=== PATIENT | female | born 1955 | race Caucasian/White ===

== ENCOUNTER → 2016-03-26 | Outpatient (CLI) | payer OTHER ==
[~2016-03-26] MED LIST: ADVIL200 M1 PO; ALAGESIC CAPSU1 EACH PO; AMBIEN10 M1 PO; AMBIEN10 MG PO; AMITRIPTYLINE H10 MG PO; BENZONATATE100 MG PO; CLONAZEPAM0.5 MG PO; CLONAZEPAM1 MG PO; CRESTOR40 MG PO; Cipro PO; ERGOCALCIF50000 UNIT PO; Ecotrin PO; FENOFIBRATE145 M1 PO; FISH OIL 1,2001 EAC4 PO; FLUOXETINE HCL40 MG PO; HYDROCODON-ACE1 EAC9 PO; KEFLEX500 MG PO; KLONOPIN0.5 M1 PO; KLONOPIN1 MG PO; KLONOPIN2 MG PO; LEVOFLOXACIN750 MG PO; LIDODERM 5% P1 PATCH TD; LYRICA150 MG PO; MACROBID100 MG PO; MELOXICAM7.5 MG PO; NAPROXEN500 MG PO; PERCOCET 5/31 TABLET PO; PREDNISONE20 MG PO; PROTONIX40 MG PO; PROZAC40 MG PO; QUETIAPINE FUM200 MG PO; SEROQUEL100 MG PO; SEROQUEL200 MG PO; SEROQUEL50 MG PO; TRICOR145 MG PO; VICODIN,LORT1 TABLET PO; VITAMIN D31000 UNI2 PO; VITAMIN D35000 UNIT PO; WELLBUTRIN XL150 MG PO; WELLBUTRIN100 M1 PO; ZYBAN 150 MG T150 MG PO
== END | disposition home or self-care (01) ==
LOC: CDC 13:06
DX: R94.31 Abnormal electrocardiogram [ECG] [EKG] (principal); M48.06 Spinal stenosis, lumbar region; G96.8 Other specified disorders of central nervous system; M43.10 Spondylolisthesis, site unspecified
CPT/HCPCS: 93000

== ENCOUNTER 2016-04-09 08:18 | Inpatient (IN) | payer OTHER ==
[~2016-04-09] VITALS: Ht 162.6 cm; Wt 86.4 kg
[~2016-04-09 08:18] MED LIST changes: +CIPRO500 MG PO; +CRESTOR20 MG PO; +TRAVATAN Z5 ML BOTH EYES
[2016-04-09 08:55] VITALS: BP 136/70
[2016-04-09 17:50] VITALS: BP 137/87
[2016-04-09 19:53] VITALS: BP 148/66
[2016-04-10 00:29] VITALS: BP 135/65
[2016-04-10 04:15] VITALS: BP 118/58
[2016-04-10 08:30] VITALS: BP 119/56
[2016-04-10 11:30] VITALS: BP 110/77; BP 117/55; BP 122/81
[2016-04-10] MEDS ORDERED: CYCLOBENZAPRINE10 MG PO (13:34)
[2016-04-10] MEDS ORDERED: FENTANYL1 EAC5 TD (13:34)
[2016-04-10] MEDS ORDERED: HYDROCODON-ACE1 EAC9 PO (13:34)
[2016-04-10 16:20] VITALS: BP 105/59
== END 2016-04-10 18:31 | disposition home or self-care (01) | DRG 460 ==
LOC: 2SOUTH → 3EAST 17:38
PROC: 0SG0071 Fusion of Lumbar Vertebral Joint with Autologous Tissue Substitute, Posterior Approach, Posterior Column, Open Approach (ICD-10-PCS; principal; 2016-04-09)
DX: M43.16 Spondylolisthesis, lumbar region (principal); G95.89 Other specified diseases of spinal cord; M48.00 Spinal stenosis, site unspecified; R32 Unspecified urinary incontinence; R53.1 Weakness; E78.5 Hyperlipidemia, unspecified; F41.9 Anxiety disorder, unspecified; F32.9 Major depressive disorder, single episode, unspecified; F43.10 Post-traumatic stress disorder, unspecified; M79.7 Fibromyalgia
CPT/HCPCS: 72100; 76000; 94799; J0330; J0690; J1100; J1170; J1580; J2250; J2405; J2710; J2930; J3010; J3370; J3480; P9045; S0020

== ENCOUNTER 2016-06-30 17:55 | Emergency (ER) | payer OTHER ==
[~2016-06-30] VITALS: Ht 162.6 cm; Wt 90.4 kg
[~2016-06-30 17:55] MED LIST changes: +CYCLOBENZAPRINE10 MG PO; +FENTANYL1 EAC5 TD
[2016-06-30] MEDS ORDERED: NAPROSYN500 MG PO (19:23)
[2016-06-30] MEDS ORDERED: KEFLEX500 MG PO (19:23)
[2016-06-30 19:39] VITALS: BP 141/96
== END 2016-06-30 19:41 | disposition home or self-care (01) ==
LOC: EME 17:55
DX: S61.211A Laceration without foreign body of left index finger without damage to nail, initial encounter (principal); S62.611B Displaced fracture of proximal phalanx of left index finger, initial encounter for open fracture; W29.3XXA Contact with powered garden and outdoor hand tools and machinery, initial encounter; Y93.H2 Activity, gardening and landscaping; Z23 Encounter for immunization; Z88.6 Allergy status to analgesic agent
CPT/HCPCS: 73130; 99281; 99283; S0020

== ENCOUNTER 2016-08-05 18:21 | Observation (INO) | payer OTHER ==
[~2016-08-05] VITALS: Ht 162.6 cm; Wt 92.3 kg
[~2016-08-05 18:21] MED LIST changes: +NAPROSYN500 MG PO
[2016-08-05 19:48] LABS: HEMATOCRIT 38.6 % (36.0-46.0); MCH 27.1 PG (29.0-34.0); MCHC 32.4 G/DL (30.0-36.0); MCV 83.7 FL (83-99); MEAN PLAT.VOLUME 10.4 uM^3 (9.5-12.4); PLATELET COUNT 308 K/uL (156-360); RBC DIS.WIDTH-CV 14.4 % (11.8-14.6); RBC DIS.WIDTH-SD 43.8 % (39-53); RED BLOOD COUNT 4.61 M/uL (3.80-5.20); WHITE BLOOD COUNT 5.9 K/uL (4.1-10.2)
[2016-08-05 20:00] LABS: CHLORIDE 107 mEq/L (99-109); POTASSIUM 4.3 mEq/L (3.7-5.4); SODIUM 141 mEq/L (136-147)
[2016-08-05 20:01] LABS: GLUCOSE 105 mg/dL (70-99)
[2016-08-05 20:03] LABS: ANION GAP 10 MEQ/L (2-14)
[2016-08-05 20:05] LABS: GFR ESTIMATE (CALCULATED) 49 mL/min/
[2016-08-05 20:06] LABS: UREA NITROGEN (BUN) 21 mg/dL (9-23)
[2016-08-05] MEDS ORDERED: ADVIL,NUPRIN,M200 MG PO (22:16)
[2016-08-05] MEDS ORDERED: PROTONIX40 MG PO (22:17)
[2016-08-05] MEDS ORDERED: WELLBUTRIN XL150 MG PO (23:59)
[2016-08-06 01:23] VITALS: BP 123/65
[2016-08-06 01:38] LABS: ADD MIUA? YES; BILIRUBIN NEGATIVE; BLOOD NEGATIVE; COLOR YELLOW ((YELLOW)); GLUCOSE (STRIP) NEGATIVE; KETONES NEGATIVE; LEUKOCYTES MODERATE; NITRITE NEGATIVE; PROTEIN (STRIP) NEGATIVE; SPECIFIC GRAVITY 1.018 (1.000-1.030); UROBILINOGEN 0.2 MG/DL (0.2-1.0)
[2016-08-06 02:14] LABS: BACTERIA NONE SEEN /HPF; CALCIUM OXALATE CRYSTALS 4+ /HPF; EPITHELIAL CELLS RARE /HPF; MUCUS TRACE /LPF; RED BLOOD CELLS 0-5 /HPF (0-5); WHITE BLOOD CELLS 20-30 /HPF (0-5)
[2016-08-06 03:30] VITALS: BP 121/59
[2016-08-06 04:23] LABS: BARBITUATES QUANT VALUE 0 NG/ML; BENZODIAZEPINES, URINE SCREEN POSITIVE (200 ng/mL); MARIJUANA QUANT VALUE 0 NG/ML; PHENCYCLIDINE QUANT VALUE 0 NG/ML
[2016-08-06 07:02] LABS: Estimated Average Glucose 131 mg/dL (70-123); HEMOGLOBIN A1c (GLYCOHEMOGLOB) 6.2 % HGB (Below 5.7)
[2016-08-06 07:25] LABS: HDL CHOLESTEROL 26 MG/DL (Desirable>=50); NON-HDL CHOLESTEROL 146 mg/dL (Desirable<160); TOTAL CHOLESTEROL 172 mg/dL (Desirable<200); TRIGLYCERIDES 505 MG/DL (Normal: <150)
[2016-08-06 07:55] VITALS: BP 119/69
== END 2016-08-06 13:34 | disposition home or self-care (01) ==
LOC: EME 18:21 → RME 18:21 → 5WEST 23:10 → EDOF 23:10 → 5WEST 08-06 00:22
PROVIDERS: Hospitalist; Physician Assistant
DX: G43.109 Migraine with aura, not intractable, without status migrainosus (principal); G44.89 Other headache syndrome; R20.0 Anesthesia of skin; F41.9 Anxiety disorder, unspecified; F32.9 Major depressive disorder, single episode, unspecified; K21.9 Gastro-esophageal reflux disease without esophagitis; G89.4 Chronic pain syndrome; M79.7 Fibromyalgia; E78.5 Hyperlipidemia, unspecified; I10 Essential (primary) hypertension; N20.0 Calculus of kidney; Z79.891 Long term (current) use of opiate analgesic
CPT/HCPCS: 70450; 70551; 71020; 80048; 80061; 80306 90; 81003; 83036; 85027; 87651 90; 93005; 93880; 99281; 99285; G0378

== ENCOUNTER → 2016-11-29 | Outpatient (CLI) | payer OTHER ==
[~2016-11-29] VITALS: Ht 162.6 cm; Wt 87.1 kg
[~2016-11-29] MED LIST changes: +ADVIL,NUPRIN,M200 MG PO
== END | disposition home or self-care (01) ==
LOC: AMB 13:00
PROC: 0DJD8ZZ Inspection of Lower Intestinal Tract, Via Natural or Artificial Opening Endoscopic (ICD-10-PCS; principal; 2016-11-29)
DX: Z12.11 Encounter for screening for malignant neoplasm of colon (principal); K21.9 Gastro-esophageal reflux disease without esophagitis; F41.1 Generalized anxiety disorder; E66.9 Obesity, unspecified; F32.9 Major depressive disorder, single episode, unspecified; E78.5 Hyperlipidemia, unspecified; Z68.32 Body mass index [BMI] 32.0-32.9, adult

== ENCOUNTER 2017-07-05 16:10 | Emergency (ER) | payer OTHER ==
[~2017-07-05] VITALS: Ht 162.6 cm; Wt 86.3 kg
[2017-07-05] MEDS ORDERED: NAPROSYN500 MG PO (17:50)
[2017-07-05 18:08] VITALS: BP 114/61
== END 2017-07-05 18:09 | disposition home or self-care (01) ==
LOC: EME 16:10
DX: S93.402A Sprain of unspecified ligament of left ankle, initial encounter (principal); X50.1XXA Overexertion from prolonged static or awkward postures, initial encounter; Y93.01 Activity, walking, marching and hiking; Z88.5 Allergy status to narcotic agent; Z88.8 Allergy status to other drugs, medicaments and biological substances
CPT/HCPCS: 73610; 99281; 99283

== ENCOUNTER 2017-09-15 14:02 | Observation (INO) | payer OTHER ==
[~2017-09-15] VITALS: Ht 162.6 cm; Wt 84.9 kg
[2017-09-15 16:31] LABS: BASOPHIL (%) 0.7 % (0-1); BASOPHIL COUNT 0.1 K/uL (0-0.1); EOSINOPHIL (%) 2.4 % (0-5); EOSINOPHIL COUNT 0.3 K/uL (0-0.3); HEMATOCRIT 38.6 % (36.0-46.0); HEMOGLOBIN 13.2 G/DL (11.9-15.5); IMMATURE GRANULOCYTE (%) 0.8 % (0.0-0.7); LYMPHOCYTE (%) 19.6 % (15-42); LYMPHOCYTE COUNT 2.1 K/uL (1.0-2.8); MCH 29.7 PG (29.0-34.0); MCHC 34.2 G/DL (30.0-36.0); MCV 86.9 FL (83-99); MONOCYTE (%) 7.4 % (3-12); MONOCYTE COUNT 0.8 K/uL (0-0.8); NEUTROPHIL (%) 69.1 % (45-76); NEUTROPHIL COUNT 7.4 K/uL (1.8-6.4); PLATELET COUNT 285 K/uL (156-360); RBC DIS.WIDTH-CV 13.1 % (11.8-14.6); RBC DIS.WIDTH-SD 41.2 % (39-53); RED BLOOD COUNT 4.44 M/uL (3.80-5.20); WHITE BLOOD COUNT 10.8 K/uL (4.1-10.2)
[2017-09-15 16:40] LABS: CHLORIDE 108 mEq/L (99-109); POTASSIUM 4.4 mEq/L (3.7-5.4); PTT 28.3 SEC (25-37); SODIUM 138 mEq/L (136-147)
[2017-09-15 16:42] LABS: GLUCOSE 120 mg/dL (70-99)
[2017-09-15 16:45] LABS: SERUM ETHYL ALCOHOL < 10 mg/dL
[2017-09-15 16:46] LABS: CREATININE 0.8 mg/dL (0.6-1.3); GFR ESTIMATE (CALCULATED) > 59 mL/min/
[2017-09-15 16:47] LABS: UREA NITROGEN (BUN) 16 mg/dL (9-23)
[2017-09-15 16:53] LABS: TROP-I INTERPRETATION NEGATIVE; TROPONIN-I 0.01 ng/mL (0.0-0.30)
[2017-09-15 16:54] LABS: APPEARANCE CLEAR ((CLEAR)); BILIRUBIN NEGATIVE; BLOOD NEGATIVE; COLOR STRAW ((YELLOW)); GLUCOSE (STRIP) NEGATIVE; KETONES NEGATIVE; LEUKOCYTES TRACE; NITRITE NEGATIVE; PROTEIN (STRIP) NEGATIVE; SPECIFIC GRAVITY 1.005 (1.000-1.030); UROBILINOGEN 0.2 MG/DL (0.2-1.0)
[2017-09-15 16:59] LABS: BACTERIA NONE SEEN /HPF; EPITHELIAL CELLS RARE /HPF; MUCUS NONE SEEN /LPF; RED BLOOD CELLS 0-5 /HPF (0-5); UCUL ADDED? NO; WHITE BLOOD CELLS 0-5 /HPF (0-5)
[2017-09-15 17:10] LABS: PHENCYCLIDINE NEGATIVE (25 ng/mL); THC CANNABINOIDS NEGATIVE (50 ng/mL)
[2017-09-15 17:11] LABS: AMPHETAMINE NEGATIVE (500 ng/mL); BARBITURATES NEGATIVE (200 ng/mL); BENZODIAZEPINES NEGATIVE (150 ng/mL); BUPRENORPHINE NEGATIVE (10 ng/mL); COCAINE NEGATIVE (150 ng/mL); METHADONE NEGATIVE (200 ng/mL); METHAMPHETAMINE NEGATIVE (500 ng/mL); OPIATES (MORPHINE) NEGATIVE (100 ng/mL); OXYCODONE NEGATIVE (100 ng/mL); PROPOXYPHENE NEGATIVE (300 ng/mL); TRICYCLIC ANTIDEPRESSANTS NEGATIVE (300 ng/mL)
[2017-09-15 17:36] LABS: HDL CHOLESTEROL 42 MG/DL (Desirable>=50); LDL CHOLESTEROL 88 mg/dL (Desirable<100); NON-HDL CHOLESTEROL 161 mg/dL (Desirable<160); TOTAL CHOLESTEROL 203 mg/dL (Desirable<200); TRIGLYCERIDES 367 MG/DL (Normal: <150)
[2017-09-15 17:49] LABS: THYROTROPIN (TSH) 1.2 MIU/L (0.4-5.5)
[2017-09-15] MEDS ORDERED: CLONAZEPAM1 MG PO (18:06)
[2017-09-15] MEDS ORDERED: LATANOPROST2.5 ML BOTH EYES (18:10)
[2017-09-15] MEDS ORDERED: PANTOPRAZOLE SO40 MG PO (18:10)
[2017-09-15 22:23] VITALS: BP 144/74
[2017-09-16 01:08] LABS: TROP-I INTERPRETATION NEGATIVE; TROPONIN-I < 0.01 ng/mL (0.0-0.30)
[2017-09-16 03:30] VITALS: BP 104/56
[2017-09-16 06:11] LABS: TROP-I INTERPRETATION NEGATIVE; TROPONIN-I < 0.01 ng/mL (0.0-0.30)
[2017-09-16 07:13] VITALS: BP 105/79
[2017-09-16 10:18] LABS: HEMOGLOBIN A1c (GLYCOHEMOGLOB) 5.7 % (Below 5.7)
[2017-09-16 12:11] VITALS: BP 141/75
[2017-09-16] MEDS ORDERED: ASPIRIN EC325 MG PO (14:34)
[2017-09-16 15:07] VITALS: BP 138/77
== END 2017-09-16 16:20 | disposition home or self-care (01) ==
LOC: EME 14:02 → 5SOUTH 19:53 → EDOF 19:53 → 5SOUTH 19:53 → ENRESERV 20:20 → 5SOUTH 21:59
PROVIDERS: Emergency Medicine; Hospitalist
PROC: B246ZZZ Ultrasonography of Right and Left Heart (ICD-10-PCS; principal; 2017-09-16)
DX: G45.9 Transient cerebral ischemic attack, unspecified (principal); G43.909 Migraine, unspecified, not intractable, without status migrainosus; E78.5 Hyperlipidemia, unspecified; I10 Essential (primary) hypertension; K21.9 Gastro-esophageal reflux disease without esophagitis; F41.9 Anxiety disorder, unspecified; F32.9 Major depressive disorder, single episode, unspecified; G89.4 Chronic pain syndrome; Z90.710 Acquired absence of both cervix and uterus; Z87.442 Personal history of urinary calculi
CPT/HCPCS: 70450; 70551; 71045; 80048; 80061; 81003; 83036; 84443; 84484; 85025; 85610; 85651; 85730; 87641; 93005; 93306; 95819; 99281; 99284; G0378; G0480; J1650